=== PATIENT | male | born 1980 | race Caucasian/White ===

== ENCOUNTER 2023-12-27 16:29 | Emergency (ER) | payer BC ==
[~2023-12-27 16:29] MED LIST: Iopamidol 370 76% 100 ML VIAL ONE
[2023-12-27 17:07] LABS: #Basophils 0.06 10x3/uL (0.0-0.2); #Monocytes 0.77 10x3/uL (0.0-1.1); #Neutrophils 3.24 10x3/uL (1.5-8.4); %Basophils 0.8 % (0.0-2.0); %Eosinophils 1.4 % (0.0-6.0); %Lymphocytes 40.9 % (18.0-47.0); %Monocytes 10.9 % (0.0-10.0); Hematocrit 44.3 % (38.8-50.0); Hemoglobin 15.2 g/dL (13.5-17.5); Mean Corpuscular HGB CONC 34.3 g/dL (32.0-36.0); Mean Corpuscular Hemoglobin 29.8 pg (27.0-33.0); Mean Corpuscular Volume 86.9 fL (81.2-95.1); Mean Platelet Volume 8.8 fL (7.4-10.4); Platelet Count 223 10x3/uL (150-450); White Blood Cell (WBC) Count 7.1 10x3/uL (3.5-10.5)
[2023-12-27 17:25] LABS: ALT (SGPT) 21 U/L (8-55); AST (SGOT) 17 U/L (5-34); Albumin 4.2 g/dL (3.5-5.0); Alkaline Phosphatase 73 U/L (40-110); Anion Gap 11 mmol/L (10-20); BUN (Urea Nitrogen) 14 mg/dL (8.9-20.6); Bilirubin, Total 0.5 mg/dL (0.2-1.2); Calc. Creatinine Clearance 0 mL/min (70-130); Calcium 9.7 mg/dL (7.8-10.44); Carbon Dioxide 28 mmol/L (22-29); Chloride 103 mmol/L (98-107); Estimated GFR 86; Globulin 3.1 g/dL (2.4-3.5); Glucose 106 mg/dL (70-105); Lipase 20 U/L (8-78); Potassium 3.7 mmol/L (3.5-5.1); Protein, Total 7.3 g/dL (6.0-8.3); Sodium 138 mmol/L (136-145)
[2023-12-27 18:05] LABS: Bilirubin Neg (Negative); Blood, Urine Negative (Negative); Clarity Clear (Clear); Glucose, Urine (Dipstick) Normal (Negative); Ketone, Urine Negative (Negative); Leukocyte Negative (Negative); Nitrite Negative (Negative); Protein, Urine (Dipstick) Negative (Neg-Trace); Specific Gravity, Urine 1.005 (1.005-1.030); Urobilinogen Normal mg/dL (Less than 2)
[2023-12-27 18:12] LABS: Phosphorus 2.8 mg/dL (2.3-4.7)
[2023-12-27 18:16] LABS: Bacteria/HPF Rare-Few HPF (None Seen); CAUTI Indications for Culture Pelvic or flank pain; RBC/HPF None Seen HPF (0-3); Squamous Epithelial None Seen HPF (0-3); WBC/HPF None Seen HPF (0-3)
[2023-12-27 18:18] LABS: Urine Culture Reflex No No
== END 2023-12-27 19:00 | disposition home or self-care (01) ==
LOC: CSHERS 16:29
DX: R10.9 Unspecified abdominal pain (principal); R63.4 Abnormal weight loss
CPT/HCPCS: 71045; 74177; 80053; 81001; 83690; 83735; 84100; 85025; Q9967